=== PATIENT | female | born 1985 | race African-American/Black ===

== ENCOUNTER 2019-01-28 03:07 | Emergency (ER) | payer MEDICAID ==
[~2019-01-28] VITALS: Ht 172.7 cm; Wt 83.0 kg
[~2019-01-28 03:07] MED LIST: BENTROPINE; COGENTIN; HALDOL; SEROQUEL
[2019-01-28] MEDS ORDERED: QUETIAPINE FUMARATE 25MG TABLET PO ONE ×2 (04:00→05:00)
[2019-01-28 04:57] LABS: BASOPHILS % 0.3 % (0.0-2.0); HEMATOCRIT. 35.5 % (36.0-48.0); HEMOGLOBIN. 11.8 g/dL (12.0-16.0); LYMPHOCYTES % 29.2 % (20.0-50.0); MEAN CORPUSCULAR HEMOGLOBIN 29.1 pg (28.0-32.0); MEAN CORPUSCULAR VOLUME 87.9 fL (81.0-99.0); MEAN PLATELET VOLUME 9.4 fl (7.4-10.4); MONOCYTES % 10.2 % (2.0-8.0); NEUTROPHILS % 59.3 % (40.0-76.0); PLATELET 293 x1000/uL (130-400); RED BLOOD CELL COUNT 4.03 mill/uL (4.2-5.4); RED CELL DISTRIBUTION WIDTH 15.7 % (11.6-14.6)
[2019-01-28] MEDS ORDERED: DIPHENHYDRAMINE 50MG/ML VIAL IV ONE (05:00)
[2019-01-28] MEDS ORDERED: LORAZEPAM 2MG/ML CPJ IV ONE (05:00)
[2019-01-28 05:02] LABS: CHLORIDE 109 mEq/L (98-107)
[2019-01-28 05:04] LABS: HCG SCREEN NEGATIVE
[2019-01-28 05:07] LABS: ETHANOL BLOOD < 10 mg/dL
[2019-01-28 05:10] LABS: CLARITY URINE TURBID (CLEAR); COLOR URINE DARK YELLOW (YELLOW); KETONES URINE 1+ (NEGATIVE); LEUKOCYTE ESTERASE URINE TRACE (NEGATIVE); NITRITE URINE NEGATIVE (NEGATIVE); OCCULT BLOOD URINE NEGATIVE (NEGATIVE); PH URINE 5.5 (4.5-8.0); PROTEIN URINE TRACE (NEGATIVE); SPECIFIC GRAVITY URINE 1.027 (1.005-1.030)
[2019-01-28] MEDS ORDERED: POTASSIUM CHLORIDE 20MEQ TABLET SR PO ONE (05:30)
[2019-01-28 05:45] LABS: *AMPHETAMINES SCREEN URINE NEGATIVE (NEGATIVE); *BARBITURATES SCREEN URINE NEGATIVE (NEGATIVE); *BENZODIAZEPINES SCREEN URINE NEGATIVE (NEGATIVE); *COCAINE SCREEN URINE NEGATIVE (NEGATIVE)
[2019-01-28 05:46] LABS: CANNABINOID URINE SCREEN NEGATIVE (NEGATIVE); METHADONE URINE SCREEN NEGATIVE (NEGATIVE); OPIATES URINE SCREEN NEGATIVE (NEGATIVE); PHENCYCLIDINE URINE SCREEN NEGATIVE (NEGATIVE)
[2019-01-28] MEDS: LORAZEPAM 1MG TABLET PO PRN ×2 (15:58→20:56)
[2019-01-28] MEDS: ACETAMINOPHEN 325MG TABLET PO PRN ×2 (15:58→20:56)
[2019-01-28] MEDS ORDERED: ZOLPIDEM TARTRATE 5MG TABLET PO ONE (20:15)
[2019-01-28] MEDS ORDERED: HALOPERIDOL LACTATE 5MG/ML VIAL IM ONE (21:30)
[2019-01-28] MEDS ORDERED: LORAZEPAM 2MG/ML CPJ IM ONE (21:30)
[2019-01-28] MEDS ORDERED: DIPHENHYDRAMINE 50MG/ML VIAL IM ONE (21:30)
[2019-01-29] MEDS ORDERED: PERMETHRIN 5% CREAM 60GM TOP ONE (07:15)
[2019-01-29] MEDS ORDERED: HALOPERIDOL LACTATE 5MG/ML VIAL IM ONE (07:30)
[2019-01-29] MEDS ORDERED: DIPHENHYDRAMINE 50MG/ML VIAL IM ONE (07:30)
[2019-01-29] MEDS ORDERED: LORAZEPAM 2MG/ML CPJ IM ONE (07:30)
[2019-01-29] MEDS: OLANZAPINE 5MG TABLET PO SCH ×2 (09:00→18:47)
[2019-01-29] MEDS: LORAZEPAM 1MG TABLET PO PRN (22:52)
[2019-01-30] MEDS: OLANZAPINE 5MG TABLET PO SCH ×2 (08:32→17:30)
[2019-01-30] MEDS: LORAZEPAM 1MG TABLET PO PRN ×2 (08:55→17:30)
[2019-01-30 22:26] VITALS: BP 128/58
== END 2019-01-31 01:19 ==
LOC: ER 03:07
DX: F23 Brief psychotic disorder (principal); R45.851 Suicidal ideations; F31.9 Bipolar disorder, unspecified; J45.909 Unspecified asthma, uncomplicated; Z88.6 Allergy status to analgesic agent; Z91.018 Allergy to other foods; Z75.1 Person awaiting admission to adequate facility elsewhere
CPT/HCPCS: 36415; 80053; 80305; 80320; 81003; 81025; 84703; 85025; 96372; 96374; 96375; 99285; J1200; J1630; J2060; Z7610; G0480

== ENCOUNTER 2019-03-18 19:59 | Emergency (ER) | payer MEDICAID, MEDICARE ==
[~2019-03-18] VITALS: Ht 162.6 cm; Wt 104.7 kg
[2019-03-19 02:33] LABS: BASOPHILS % 1.3 % (0.0-2.0); EOSINOPHILS % 0.6 % (0.0-5.0); HEMATOCRIT. 38.9 % (36.0-48.0); HEMOGLOBIN. 12.9 g/dL (12.0-16.0); LYMPHOCYTES % 35.3 % (20.0-50.0); MEAN CORPUSCULAR HEMOGLOBIN 28.4 pg (28.0-32.0); MEAN PLATELET VOLUME 9.5 fl (7.4-10.4); MONOCYTES % 9.4 % (2.0-8.0); NEUTROPHILS % 53.4 % (40.0-76.0); PLATELET 258 x1000/uL (130-400); RED BLOOD CELL COUNT 4.52 mill/uL (4.2-5.4); RED CELL DISTRIBUTION WIDTH 16.8 % (11.6-14.6)
[2019-03-19 02:38] LABS: CHLORIDE 109 mEq/L (98-107)
[2019-03-19 02:45] LABS: ETHANOL BLOOD < 10 mg/dL
[2019-03-19 02:49] LABS: HCG SCREEN NEGATIVE
[2019-03-19] MEDS ORDERED: ACETAMINOPHEN 325MG TABLET PO STA (02:49)
[2019-03-19 03:53] LABS: CLARITY URINE CLOUDY (CLEAR); COLOR URINE DARK YELLOW (YELLOW); KETONES URINE 1+ (NEGATIVE); LEUKOCYTE ESTERASE URINE TRACE (NEGATIVE); NITRITE URINE NEGATIVE (NEGATIVE); OCCULT BLOOD URINE 3+ (NEGATIVE); PH URINE 6.5 (4.5-8.0); PROTEIN URINE 2+ (NEGATIVE); SPECIFIC GRAVITY URINE 1.026 (1.005-1.030)
[2019-03-19 04:22] LABS: *AMPHETAMINES SCREEN URINE NEGATIVE (NEGATIVE); *BARBITURATES SCREEN URINE NEGATIVE (NEGATIVE)
[2019-03-19 04:23] LABS: *BENZODIAZEPINES SCREEN URINE NEGATIVE (NEGATIVE); *COCAINE SCREEN URINE NEGATIVE (NEGATIVE); CANNABINOID URINE SCREEN NEGATIVE (NEGATIVE); METHADONE URINE SCREEN NEGATIVE (NEGATIVE); OPIATES URINE SCREEN NEGATIVE (NEGATIVE); PHENCYCLIDINE URINE SCREEN NEGATIVE (NEGATIVE)
[2019-03-19 08:10] VITALS: BP 132/78
== END 2019-03-19 08:01 | disposition home or self-care (01) ==
LOC: ER 20:22
DX: S00.83XA Contusion of other part of head, initial encounter (principal); M60.9 Myositis, unspecified; W22.8XXA Striking against or struck by other objects, initial encounter; Y93.89 Activity, other specified; Y92.89 Other specified places as the place of occurrence of the external cause; Y99.8 Other external cause status; F17.290 Nicotine dependence, other tobacco product, uncomplicated; F31.9 Bipolar disorder, unspecified; F20.9 Schizophrenia, unspecified; J45.909 Unspecified asthma, uncomplicated; Z98.890 Other specified postprocedural states; Z88.6 Allergy status to analgesic agent; Z88.1 Allergy status to other antibiotic agents
CPT/HCPCS: 36415; 80048; 80305; 80307; 80320; 80329; 81003; 84703; 99283; G0480

== ENCOUNTER 2019-03-21 17:19 | Emergency (ER) | payer MEDICARE ==
[~2019-03-21] VITALS: Ht 167.6 cm; Wt 105.0 kg
[2019-03-21] MEDS ORDERED: KETOROLAC 60MG/2ML VIAL IM STA (20:21)
[2019-03-21] MEDS ORDERED: OLANZAPINE 5MG TABLET ODT ONE (20:42)
[2019-03-21] MEDS ORDERED: OLANZAPINE 5MG TABLET ODT PO ONE (20:45)
[2019-03-21 20:49] LABS: BASOPHILS % 0.9 % (0.0-2.0); EOSINOPHILS % 3.1 % (0.0-5.0); HEMATOCRIT. 37.8 % (36.0-48.0); HEMOGLOBIN. 12.6 g/dL (12.0-16.0); LYMPHOCYTES % 36.7 % (20.0-50.0); MEAN CORPUSCULAR HEMOGLOBIN 28.8 pg (28.0-32.0); MEAN CORPUSCULAR VOLUME 86.4 fL (81.0-99.0); MEAN PLATELET VOLUME 9.2 fl (7.4-10.4); MONOCYTES % 11.1 % (2.0-8.0); NEUTROPHILS % 48.2 % (40.0-76.0); PLATELET 255 x1000/uL (130-400); RED BLOOD CELL COUNT 4.38 mill/uL (4.2-5.4); RED CELL DISTRIBUTION WIDTH 16.1 % (11.6-14.6)
[2019-03-21 20:53] LABS: CHLORIDE 110 mEq/L (98-107); INR 1.1; PROTHROMBIN TIME 10.9 sec (9.6-11.0)
[2019-03-21 21:01] VITALS: BP 128/67
[2019-03-21 21:06] LABS: HCG SCREEN NEGATIVE
[2019-03-21 21:07] LABS: CLARITY URINE CLOUDY (CLEAR); COLOR URINE YELLOW (YELLOW); KETONES URINE NEGATIVE (NEGATIVE); LEUKOCYTE ESTERASE URINE TRACE (NEGATIVE); NITRITE URINE NEGATIVE (NEGATIVE); OCCULT BLOOD URINE 3+ (NEGATIVE); PROTEIN URINE NEGATIVE (NEGATIVE); SPECIFIC GRAVITY URINE 1.024 (1.005-1.030)
[2019-03-21 21:19] LABS: *AMPHETAMINES SCREEN URINE NEGATIVE (NEGATIVE); *BARBITURATES SCREEN URINE NEGATIVE (NEGATIVE); *BENZODIAZEPINES SCREEN URINE NEGATIVE (NEGATIVE); *COCAINE SCREEN URINE NEGATIVE (NEGATIVE); METHADONE URINE SCREEN NEGATIVE (NEGATIVE); OPIATES URINE SCREEN NEGATIVE (NEGATIVE)
[2019-03-21 21:20] LABS: CANNABINOID URINE SCREEN NEGATIVE (NEGATIVE); PHENCYCLIDINE URINE SCREEN NEGATIVE (NEGATIVE)
== END 2019-03-21 22:30 | disposition left against medical advice (07) ==
LOC: ER 17:19
DX: M79.10 Myalgia, unspecified site (principal); M79.641 Pain in right hand; R51 Headache; J45.909 Unspecified asthma, uncomplicated; R00.0 Tachycardia, unspecified; Z59.0 Homelessness; Z79.899 Other long term (current) drug therapy; Z88.6 Allergy status to analgesic agent; Z88.1 Allergy status to other antibiotic agents
CPT/HCPCS: 36415; 80053; 80305; 81003; 84703; 85025; 85610; 87804; 96372; 99283; J1885; Z7610

== ENCOUNTER 2021-06-10 16:02 | Emergency (ER) | payer MEDICARE, OTHER ==
[~2021-06-10] VITALS: Ht 165.1 cm; Wt 100.0 kg
[2021-06-10 16:09] VITALS: BP 124/81
== END 2021-06-10 19:25 | disposition left against medical advice (07) ==
LOC: ER 16:02
DX: Z53.21 Procedure and treatment not carried out due to patient leaving prior to being seen by health care provider (principal)

== ENCOUNTER 2022-02-05 17:12 | Emergency (ER) | payer MEDICAID, OTHER ==
[~2022-02-05] VITALS: Ht 162.6 cm; Wt 87.0 kg
[2022-02-05] MEDS ORDERED: IBUP-2029 MT (17:44)
[2022-02-05] MEDS ORDERED: IBUPROFEN 600MG TABLET PO ONE (17:45)
[2022-02-05 17:55] VITALS: BP 163/84
== END 2022-02-05 18:25 | disposition home or self-care (01) ==
LOC: ER 17:12
DX: R29.91 Unspecified symptoms and signs involving the musculoskeletal system (principal)
CPT/HCPCS: 99283

== ENCOUNTER 2022-04-28 19:12 | Emergency (ER) | payer MEDICAID ==
[~2022-04-28] VITALS: Ht 160 cm; Wt 107.0 kg
[~2022-04-28 19:12] MED LIST changes: +IBUP-2029 MT
[2022-04-29 01:19] LABS: EOSINOPHILS % 1.2 % (0.0-5.0); HEMATOCRIT. 39.3 % (36.0-48.0); HEMOGLOBIN. 13.4 g/dL (12.0-16.0); LYMPHOCYTES % 44.5 % (20.0-50.0); MEAN CORPUSCULAR HEMOGLOBIN 31.8 pg (28.0-32.0); MEAN CORPUSCULAR VOLUME 93.3 fL (81.0-99.0); MEAN PLATELET VOLUME 9.5 fl (7.4-10.4); MONOCYTES % 13.6 % (2.0-8.0); NEUTROPHILS % 39.7 % (40.0-76.0); PLATELET 275 x1000/uL (130-400); RED BLOOD CELL COUNT 4.21 mill/uL (4.2-5.4); RED CELL DISTRIBUTION WIDTH 13.8 % (11.6-14.6)
[2022-04-29 01:23] LABS: CHLORIDE 104 mEq/L (98-107)
[2022-04-29 01:30] LABS: ETHANOL BLOOD < 10 mg/dL
[2022-04-29 09:01] LABS: CLARITY URINE CLEAR (CLEAR); COLOR URINE DARK YELLOW (YELLOW); KETONES URINE TRACE (NEGATIVE); LEUKOCYTE ESTERASE URINE TRACE (NEGATIVE); NITRITE URINE NEGATIVE (NEGATIVE); OCCULT BLOOD URINE NEGATIVE (NEGATIVE); PH URINE 5.5 (4.5-8.0); PROTEIN URINE TRACE (NEGATIVE); SPECIFIC GRAVITY URINE 1.028 (1.005-1.030)
[2022-04-29 09:23] LABS: *AMPHETAMINES SCREEN URINE NEGATIVE (NEGATIVE); *BARBITURATES SCREEN URINE NEGATIVE (NEGATIVE); *BENZODIAZEPINES SCREEN URINE NEGATIVE (NEGATIVE); *COCAINE SCREEN URINE NEGATIVE (NEGATIVE); CANNABINOID URINE SCREEN NEGATIVE (NEGATIVE); METHADONE URINE SCREEN NEGATIVE (NEGATIVE); OPIATES URINE SCREEN NEGATIVE (NEGATIVE); PHENCYCLIDINE URINE SCREEN NEGATIVE (NEGATIVE)
[2022-04-29] MEDS ORDERED: ACETAMINOPHEN 325MG TABLET PO ONE (10:15)
[2022-04-29 11:40] VITALS: BP 126/84
== END 2022-04-29 11:50 | disposition home or self-care (01) ==
LOC: ER 19:12
DX: R30.0 Dysuria (principal); F20.9 Schizophrenia, unspecified; F31.9 Bipolar disorder, unspecified; G40.909 Epilepsy, unspecified, not intractable, without status epilepticus; J45.909 Unspecified asthma, uncomplicated; Z59.00 Homelessness unspecified; Z91.018 Allergy to other foods; Z88.6 Allergy status to analgesic agent
CPT/HCPCS: 36415; 80048; 80305; 80320; 81003; 81025; 85025; 99285; G0480